=== PATIENT | female | born 1970 | race Two or more races ===

== ENCOUNTER 2023-07-09 13:04 | Emergency (ER) | payer OTHER ==
[2023-07-09 13:12] VITALS: BP 117/60; PULSE 76; RESP 18; TEMP 98.2; BMI 31.5
[2023-07-09 14:46] LABS: BASO % 0.6 % (0-2.0); HEMATOCRIT 36.7 % (32.4-45.2); HEMOGLOBIN 12.7 GM/dL (10.7-15.3); LYMPH % 28.2 % (8-40); MCH 30.7 pg (25.7-33.7); MCHC 34.7 g/dl (32.0-36.0); MEAN CELL VOLUME 88.5 fl (80-96); MEAN PLT VOLUME 9.1 fl (7.5-11.1); MONO % 7.4 % (3.8-10.2); NEUT % 60.8 % (42.8-82.8); PLATELET COUNT 307 10^3/uL (134-434); RBC 4.15 M/mm3 (3.60-5.2); RDW 14.1 % (11.6-15.6); WHITE BLOOD COUNT 7.7 K/mm3 (4.0-10.0)
[2023-07-09 15:04] LABS: INR 1.01 (0.83-1.09); PROTHROMBIN TIME (PATIENT) 11.7 SEC (9.7-13.0)
[2023-07-09 15:27] LABS: POTASSIUM 4.5 mmol/L (3.5-5.1)
[2023-07-09 15:30] LABS: ALBUMIN 3.7 g/dl (3.4-5.0); BLOOD UREA NITROGEN 10.9 mg/dL (7-18); CALCIUM 9.2 mg/dL (8.5-10.1)
[2023-07-09 15:33] LABS: CREATININE 0.6 mg/dL (0.55-1.3)
[2023-07-09 15:35] LABS: BILIRUBIN,TOTAL 0.4 mg/dL (0.2-1); TOT PROT 7.7 g/dl (6.4-8.2)
== END 2023-07-09 16:01 | disposition home or self-care (01) ==
LOC: JER 13:04
DX: K64.4 Residual hemorrhoidal skin tags (principal); K92.1 Melena; K62.5 Hemorrhage of anus and rectum
CPT/HCPCS: 36415; 80053; 85025; 85610; 86850; 86900; 86901; 99283-25